=== PATIENT | male | born 2000 | race Hispanic/Latino ===

== ENCOUNTER 2021-09-02 19:21 | Emergency (ER) | payer OTHER ==
[~2021-09-02] VITALS: Ht 172.7 cm; Wt 58.5 kg
[2021-09-02] MEDS ORDERED: IBUPROFEN 600 MG TAB PO STA (19:31)
[2021-09-02] MEDS ORDERED: IBUPROFEN 600 MG TAB ONE (19:48)
== END 2021-09-02 21:19 | disposition home or self-care (01) ==
LOC: ER 19:36
DX: M79.671 Pain in right foot (principal); S90.111A Contusion of right great toe without damage to nail, initial encounter; W20.8XXA Other cause of strike by thrown, projected or falling object, initial encounter; Y99.0 Civilian activity done for income or pay
CPT/HCPCS: 99282